=== PATIENT | female | born 1985 | race Caucasian/White ===

== ENCOUNTER 2016-05-24 15:00 | Emergency (ER) | payer BC, MEDICAID ==
[2016-05-24 15:31] VITALS: BP 149/82
--- NOTE | 2016-05-24 17:16 | EDM.PDOC ---
ED HISTORY OF PRESENT ILLNESS - General Chief Complaint: Respiratory Problem Stated Complaint: SOB, COUGH, SORE THOAT, EARACHE Time Seen by Provider: 05/24/16 17:11 Source: Reports: Patient, RN notes reviewed History Limitations: Reports: No limitations - History of Present Illness INITIAL COMMENTS - FREE TEXT/NARRATIVE: 31-year-old female ill since Wednesday with intermittent fevers associated cough feeling of shortness of breath and symptoms of laryngitis Nonsmoker, no flu shot Other family members with similar illness - Related Data Allergies/ADRs: Allergies Allergy/AdvReac Type Severity Reaction Status Date / Time No Known Allergies Allergy Verified 05/24/16 15:32 Home Meds: Home Meds Etonogestrel [Nexplanon] 05/24/16 [History] Past Medical History - Past Surgical History HEENT Surgical History: Reports: Adenoidectomy, Tonsillectomy Female Surgical History: Reports: section Social & Family History - Tobacco Use Smoking Status *Q: Never Smoker ED ROS GENERAL - Review of Systems Review Of Systems: See Below Constitutional: Reports: fever, chills HEENT: Reports: Throat pain Respiratory: Reports: shortness of breath, cough Cardiovascular: Reports: No symptoms Endocrine: Reports: no symptoms GI/Abdominal: Reports: No symptoms : Reports: no symptoms Musculoskeletal: Reports: no symptoms Skin: Reports: no symptoms Neurological: Reports: no symptoms ED EXAM, GENERAL - Physical Exam Exam: See Below Exam Limited By: No limitations General Appearance: alert, WD/WN, no apparent distress Ears: normal external exam, normal canal, hearing grossly normal, normal TMs Nose: normal inspection Throat/Mouth: Normal inspection, Normal lips, Normal teeth, Normal gums, Normal oropharynx, No airway compromise, Other (hoarse voice) Neck: normal inspection, supple, non-tender Respiratory/Chest: no respiratory distress, chest non-tender, crackles, other ( right mid posterior) Cardiovascular: regular rate, rhythm Skin Exam: Warm, Dry, Intact, Normal color Lymphatic: no adenopathy Course - Vital Signs Text/Narrative:: Exam pertinent for right mid posterior background Chest x-ray with question of right posterior lobe infiltrate Suspect community-acquired pneumonia Treated with azithromycin Last Recorded V/S: Last Vital Signs Temp 97.7 F 05/24/16 15:39 Pulse 117 H 05/24/16 15:39 Resp 20 05/24/16 15:39 BP 149/82 H 05/24/16 15:39 Pulse Ox 97 05/24/16 15:39 - Orders/Labs/Meds Orders: Active Orders 24 hr Category Date Time Status Chest 2V [CR] Stat Exams 05/24/16 16:23 Taken Departure - Departure Time of Disposition: 17:14 Disposition: Home, Self-Care 01 Condition: good Clinical Impression: Pneumonia Forms: ED Department Discharge Additional Instructions: Taking azithromycin 500 mg on day 150 mg day 2 through 5 Followup with primary care provider if no improvement - My Orders Last 24 Hours: My Active Orders 05/24/16 16:23 Chest 2V [CR] Stat - Assessment/Plan Last 24 Hours: My Active Orders 05/24/16 16:23 Chest 2V [CR] Stat
--- NOTE | 2016-05-25 09:45 | CR ---
Chest 2V HISTORY: History of pneumonia. FINDINGS: The heart and vascular structures are normal in appearance. No infiltrates or effusions ar e demonstrated. The skeletal structures are unremarkable. IMPRESSION: Negative exam.
== END 2016-05-24 17:31 | disposition home or self-care (01) ==
LOC: JP.ED 15:00
DX: J18.9 Pneumonia, unspecified organism (principal); Z90.49 Acquired absence of other specified parts of digestive tract
CPT/HCPCS: 71020; 71020-26; 99284